=== PATIENT | female | born 1960 | race Two or more races ===

== ENCOUNTER 2018-11-29 03:02 | Emergency (ER) | payer SELFPAY ==
[2018-11-29] MEDS ORDERED: LORazepam 0.5 MG Tab PO ONE (03:51)
--- NOTE | 2018-11-29 03:57 | EDM.PDOC ---
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 Checks her BP every day and today her BP was considerably higher than normal. Is stressed out because her mother is in the ICU back home and there was a time this evening when she couldn't reach her mother. Took her evening dose of metoprolol later than normal, just an hour before arrival. Transiently was unable to speak or move her feet. These problems abruptly resolved. Transport from [facility] to here via EMS. Onset: Today Onset Date: 11/29/18 Onset Time: 02:50 Duration: Minutes:, Improving Location: Reports: Generalized Quality: Reports: Other (no pain reported) Severity: Moderate Improves with: Reports: Other (time) Worsens with: Reports: Other (? stress) Context: Reports: Other (see HPI) Associated Symptoms: Reports: No Other Symptoms Treatments OFFICE SERVICES SPECIALIST: Reports: Other (see below) (took her metoprolol about an hour before arrival. ) - Related Data Allergies Allergy/AdvReac Type Severity Reaction Status Date / Time acetaminophen [From Vicodin] Allergy Vomiting Verified 11/29/18 03:26 benzoin Allergy Hives Verified 11/29/18 03:26 butorphanol [From Stadol] Allergy Anaphylactic Verified 11/29/18 03:26 Shock erythromycin base Allergy Hives Verified 11/29/18 03:26 hydrocodone [From Vicodin] Allergy Vomiting Verified 11/29/18 03:26 hydromorphone [From Dilaudid] Allergy Bradycardia Verified 11/29/18 03:26 shellfish derived Allergy Itching Verified 11/29/18 03:26 Sulfa (Sulfonamide Allergy Hives Verified 11/29/18 03:26 Antibiotics) sulfamethoxazole Allergy Hives Verified 11/29/18 03:26 [From Bactrim] trimethoprim [From Bactrim] Allergy Hives Verified 11/29/18 03:26 vancomycin Allergy Burning Verified 11/29/18 03:26 Home Meds: Home Meds Aspirin [Michael Chewable] 81 mg PO DAILY 11/29/18 [History] Ferrous Sulfate [Slow Fe] 142 mg PO DAILY 11/29/18 [History] Metoprolol Tartrate [Lopressor] 50 mg PO BID 11/29/18 [History] Past Medical History Cardiovascular History: Reports: Hypertension Respiratory History: Reports: Other (See Below) Other Respiratory History: pneumonia as a child [employer] WORK[employer] WORK[employer] History: Reports: Hematologic History: Reports: Anemia, Blood Transfusion(s), Transfusion Reaction - Past Surgical History GI Surgical History: Reports: Appendectomy, Cholecystectomy Female Surgical History: Reports: Section Musculoskeletal Surgical History: Reports: Arthroscopic Knee, Knee Replacement Social & Family History - Tobacco Use Smoking Status *Q: Never Smoker - Caffeine Use Caffeine Use: Reports: Soda - Recreational Drug Use Recreational Drug Use: No ED ROS GENERAL - Review of Systems Review Of Systems: See Below Constitutional: Reports: No Symptoms HEENT: Reports: No Symptoms Respiratory: Reports: No Symptoms Cardiovascular: Reports: Lightheadedness Endocrine: Reports: No Symptoms GI/Abdominal: Reports: No Symptoms : Reports: No Symptoms Musculoskeletal: Reports: No Symptoms Skin: Reports: No Symptoms Neurological: Reports: Trouble Speaking (transiently), Difficulty Walking ( transiently) Psychiatric: Reports: Anxiety ED EXAM, GENERAL - Physical Exam Exam: See Below Exam Limited By: No Limitations General Appearance: Alert, WD/WN, No Apparent Distress, Anxious Eye Exam: Bilateral Eye: Normal Inspection Ears: Normal External Exam, Normal Canal, Hearing Grossly Normal Ear Exam: Bilateral Ear: Auricle Normal, Canal Normal Nose: Normal Inspection, No Blood Throat/Mouth: Normal Inspection, Normal Lips, Normal Oropharynx, Normal Voice, No Airway Compromise Head: Atraumatic, Normocephalic Neck: Normal Inspection Respiratory/Chest: No Respiratory Distress, Lungs Clear, Normal Breath Sounds, No Accessory Muscle Use Cardiovascular: Regular Rate, Rhythm, No Edema GI/Abdominal: Normal Bowel Sounds, Soft, Non-Tender, No Distention Back Exam: Normal Inspection. No: CVA Tenderness (R), CVA Tenderness (L) Extremities: Normal Inspection, Normal Range of Motion, Non-Tender, No Pedal Edema Neurological: Alert, Oriented, CN II-XII Intact, Normal Cognition, No Motor/ Sensory Deficits Psychiatric: Normal Affect, Normal Mood Skin Exam: Warm, Dry, Intact, Normal Color, No Rash Course - Vital Signs Text/Narrative:: Sx's all gone after Ativan 0.5 mg po Last Recorded V/S: Last Vital Signs Temp 35.6 C 11/29/18 03:05 Pulse 70 11/29/18 03:05 Resp 15 11/29/18 03:05 BP 171/102 H 11/29/18 03:05 Pulse Ox 99 11/29/18 03:05 - Orders/Labs/Meds Meds: Medications Discontinued Medications Generic Name Dose Route Start Last Admin Trade Name David PRN Reason Stop Dose Admin Lorazepam 0.5 mg 11/29/18 03:51 11/29/18 03:55 Ativan PO 11/29/18 03:52 0.5 mg ONETIME ONE Administration Departure - Departure Time of Disposition: 04:25 Disposition: Home, Self-Care 01 Condition: Good Clinical Impression: Anxiety Instructions: Panic Attack Referrals: PCP,None [Primary Care Provider] - Forms: ED Department Discharge Additional Instructions: Take lorazepam as needed. Recheck as needed. Continue your usual other medications.
== END 2018-11-29 04:52 | disposition home or self-care (01) ==
LOC: JP.ED 03:02
DX: F41.9 Anxiety disorder, unspecified (principal); I10 Essential (primary) hypertension; D64.9 Anemia, unspecified; Z88.1 Allergy status to other antibiotic agents; Z88.2 Allergy status to sulfonamides; Z91.013 Allergy to seafood; Z79.82 Long term (current) use of aspirin; Z90.49 Acquired absence of other specified parts of digestive tract
CPT/HCPCS: 99283; A9270